=== PATIENT | male | born 1945 | race Caucasian/White ===

== ENCOUNTER 2016-11-26 20:06 | Inpatient (IN) | payer MEDICARE, OTHER ==
[~2016-11-26] VITALS: Ht 177.8 cm; Wt 85.3 kg
[2016-11-26] MEDS ORDERED: Heparin 25K Unit/500mL 0.45 NS 25,000 UNIT in IV Premix 1 EACH IV SCH (22:15)
[2016-11-26] MEDS ORDERED: Heparin 5,000 Unit/mL Inj IVPUSH PRN (22:15)
[2016-11-26] MEDS ORDERED: Polyethylene Glycol (PEG) 17 Gm Powder PO PRN (22:15)
[2016-11-26] MEDS ORDERED: Atropine 1 mg/10 mL (Code) Syringe IVPUSH PRN (22:15)
[2016-11-26] MEDS ORDERED: Alum-Mag Hydrox-Simeth 30 mL Suspension PO PRN (22:15)
[2016-11-26] MEDS ORDERED: Ondansetron 2 mg/mL 2 mL Inj IVPUSH PRN (22:15)
[2016-11-26] MEDS ORDERED: Senna-Docusate 8.6-50 mg Tablet PO PRN (22:15)
[2016-11-26 22:26] VITALS: BP 167/77; PULSE 63; RESP 18; O2SAT 99
[2016-11-26 22:45] LABS: APPEARANCE,URINE CLEAR (CLEAR,HAZY); COLOR,URINE YELLOW (YELLOW); OCCULT BLOOD,URINE NEGATIVE (NEGATIVE); UROBILINOGEN,URINE NORMAL (NORMAL)
[2016-11-26 22:51] LABS: BASOPHILS % (AUTO) 0.2 % (0-3); EOSINOPHILS % (AUTO) 1.1 % (0-5); Mean Corpuscular Hemoglobin 29.4 pg (27.0-35.0); Mean Corpuscular Volume 86.3 fL (81-100); NEUTROPHILS % (AUTO) 59.4 % (40-74); Platelet Count 320 bil/L (150-400)
--- NOTE | 2016-11-26 23:20 | PCM.HPMED ---
Subjective Date of Service Nov 26, 2016 Primary Provider: Admitting Physician: Alejandro Saez MD Primary Care Physician: Nopcp Attending Physician: Alejandro Saez MD Chief Complaint: Burning left chest pain History of Present Illness: Ramiro Yun is a 71-year-old male with past medical history significant for heartburn treated with OTC and significant family history of coronary artery disease who presented to [facility] after an episode of left sided burning chest pain. Chest pain came on all of a sudden when patient started walking. Once he stopped walking the pain alleviated and resolved within minutes. It was a burning sensation and radiated to his left shoulder. Not associated with shortness of breath, diaphoresis, nausea, lightheadedness, or dizziness. Patient typically can walk many miles and do physical labor without difficulty or chest pain. He states he had one prior episode of a similar sensation earlier this week that kept him from sleeping but went away within 10-15 minutes. On admission to [facility] he was found to have an elevated troponin of 0.035 that increased to 0.072. EKG showed possible ST depressions but was less than 2 mm. Labs were unremarkable aside from an elevated blood glucose of 305. Patient does not have a prior diagnosis of diabetes. Patient was given aspirin and nitroglycerin and started on heparin drip. On presentation to our facility a repeat EKG was obtained which showed normal sinus rhythm with no ST changes or T-wave inversions. Repeat labs including a troponin are pending. Patient is currently asymptomatic with stable vitals. Of note patient is a [place] resident visiting his daughter here in [place]. He does not have a PCP and has not had any recent screening labs. Review of Systems: Comprehensive review of systems was conducted with the patient and found to be negative except as noted above in HPI. Home Medications OTC - Pepcid and ibuprofen PMH Heartburn Chronic knee pain Surgical History Tonsillectomy Family History Father - CABG Brother - DC and valve replacement Mother - CVA Social History Hx Alcohol Use: Yes (1-2 beers per week) Hx Substance Use: No Hx Tobacco Use: No Smoking Status: Never Smoker Living Arrangement: with Family Exam Vital Signs Vital Sign - Last Date Time Temp Pulse Resp B/P Pulse Ox O2 Delivery O2 Flow Rate FiO2 11/26/16 22:26 63 18 167/77 99 Room Air Exam General: No acute distress, well-developed, well-nourished, appropriately interactive HEENT: Normocephalic, atraumatic. External ears without defect. Pupils equal, round, and reactive to light and accommodation. Anicteric sclerae, moist conjunctivae, and no lid lag. Oropharynx free of erythema and cobble stoning with moist mucosa. Neck: Supple with full range of motion. No jugular venous distension. No bruits. No lymphadenopathy or thyromegaly. Cardiovascular: Regular rate and rhythm with no murmurs, rubs, or gallops appreciated Pulmonary: Clear to auscultation bilaterally with no crackles, wheezes, or rhonchi. Normal respiratory effort with no use of accessory muscles. Abdomen: Bowel tones present. Soft, nontender, nondistended. No hepatosplenomegaly or masses appreciated. Extremities: No clubbing, cyanosis, edema, or lymphadenopathy appreciated. Skin: Normal temperature, turgor, and texture; no rash, ulcers, or subcutaneous nodules appreciated. Neurological: Cranial nerves grossly intact. Normal muscle strength, tone, and bulk. Reflexes, coordination, and sensory function within normal limits. No known gait impairment. Psychiatric: Normal mood and affect. Alert and oriented to person, place, and time. Lab and Diagnostics Labs CBC Test 11/26/16 22:47 White Blood Count 6.4th/mm3 (3.8-10.1) Red Blood Count 4.46mil/mm3 (4.40-5.80) Hemoglobin 13.1g/dL (13.8-17.2) Hematocrit 38.5% (41.0-50.0) Mean Corpuscular Volume 86.3fL (81-100) Mean Corpuscular Hemoglobin 29.4pg (27.0-35.0) Mean Corpuscular Hemoglobin Concent 34.0% (32.0-37.0) Red Cell Distribution Width 12.7% (12.3-15.4) Platelet Count 320bil/L (150-400) Neutrophils (%) (Auto) 59.4% (40-74) Lymphocytes (%) (Auto) 29.7% (14-46) Monocytes (%) (Auto) 9.0% (4-12) Eosinophils (%) (Auto) 1.1% (0-5) Basophils (%) (Auto) 0.2% (0-3) CMP Test 11/26/16 22:47 11/26/16 22:54 Sodium Level 138mEq/L Potassium Level 3.6mEq/L Chloride Level 101mEq/L Carbon Dioxide Level 21mmol/L Blood Urea Nitrogen 18mg/dL Creatinine 0.95mg/dL Estimat Glomerular Filtration Rate 84mL/min Glucose Level 213mg/dL Calcium Level 8.9mg/dL Phosphorus Level 2.5mg/dL Magnesium Level 1.8mg/dL Total Bilirubin 0.4mg/dL Aspartate Amino Transf (AST/SGOT) 11U/L Alanine Aminotransferase (ALT/SGPT) 16U/L Alkaline Phosphatase 66U/L Total Creatine Kinase 20U/L Creatine Kinase MB 1.4ng/mL Creatine Kinase MB % % Troponin T < 0.010ug/L Total Protein 6.8g/dL Albumin 3.9g/dL Thyroid Stimulating Hormone (TSH) 2.680uIU/mL Hold Hood Top Tube Received Result Diagram: 11/26/16 2247 X-Rays, CTs and MRIs Chest x-ray at [facility] showed no cardiopulmonary disease. 12-lead ECG EKG was normal sinus rhythm with a rate of 56. No ST changes or T-wave inversions. Assessment & Plan Ramiro Yun is a 71-year-old male with past medical history significant for heartburn treated with OTC and significant family history of coronary artery disease who presented to [facility] after an episode of left sided burning chest pain. NSTEMI, present on admission, active. - EKG was normal sinus rhythm with no ST changes or T-wave inversions. Initial EKG at [place] showed some ST depressions that were less than 2 mm. - Initial troponin I 0.035 which increased to 0.072 3 hours later. Troponin at [facility] on presentation was < 0.010. Trending troponins. - Lipid panel pending. - Supplemental oxygen as needed. - Aspirin 324 mg given at [facility]. Aspirin 81 mg to be continued daily. - Clopidogrel 300 mg loading dose followed by 75 mg daily. - Sublingual nitroglycerin and morphine as needed. - Metoprolol tartrate 12.5 mg twice a day. - Lisinopril 5 mg daily. - Atorvastatin 40 mg daily. - Heparin drip initiated. Elevated blood glucose, present on admission, active. - Blood glucose 305 at [facility]. Repeat blood glucose of 213 at our facility. - Hemoglobin A1c pending. - Low-dose correctional scale with NPH. Chronic stable conditions Heartburn - Patient has never had an EGD or workup. He takes Pepcid as needed at home. - Famotidine 10 mg twice a day. PRN Medications - Acetaminophen as needed for mild pain/fever/headache - Bowel regimen as needed - Antiemetic as needed Patient is admitted under inpatient status with expected length of stay greater than 2 midnights due to severity of presenting symptoms, risk of adverse event, and complexity of treatment plan. Pain Evaluation: Adequate Pain Control GI Prophylaxis: H2 ivette VTE Prophylaxis: Other (heparin drip) Resuscitation Status: CPR: Attempt Resuscitation Attending Statement The patient was seen and examined together with Dr. Mehta on 11/26 and I agree with the history, exam and plan as outlined in the note above. RYLEY MEHTA DO Nov 26, 2016 23:20 Alejandro Saez MD Nov 27, 2016 00:03
[2016-11-26 23:41] LABS: Creatine Kinase 20 U/L (21-232); Magnesium 1.8 mg/dL (1.6-2.6); Phosphorus 2.5 mg/dL (2.5-4.9); TROPONIN T < 0.010 ug/L (0.0-0.011)
[2016-11-27] VITALS (25 sets, daily range): BP systolic 102–153; BP diastolic 52–79; PULSE 49–74; RESP 16–19; O2SAT 96–100
[2016-11-27] MEDS: Sodium Chloride LOK Flush 10 mL Syringe IVFLUSH SCH ×3 (00:30→16:30)
[2016-11-27] MEDS: Insulin Human REGular 300 Unit/3 mL Inj SUBQ SCH ×4 (03:36→22:19)
[2016-11-27 04:27] LABS: BASOPHILS % (AUTO) 0.3 % (0-3); MONOCYTES % (AUTO) 6.8 % (4-12); Mean Corpuscular Hemoglobin 29.4 pg (27.0-35.0); Mean Corpuscular Volume 86.7 fL (81-100); NEUTROPHILS % (AUTO) 60.9 % (40-74); Platelet Count 284 bil/L (150-400)
[2016-11-27 05:22] LABS: TROPONIN T 0.01 ug/L (0.0-0.011)
[2016-11-27] MEDS ORDERED: 0.9% Sodium Chloride 1,000 ML IV ONE (10:40)
--- NOTE | 2016-11-27 10:50 | CONS ---
[address] [address] CONSULTATION REPORT PATIENT: ADDIE VEGA : 1945 MR#: [id number] ADMIT: 11/26/2016 JOB ID: [id number] DATE OF SERVICE: 11/27/2016 CARDIOLOGY CONSULTATION NOTE: CHIEF COMPLAINT: The patient came in with chest pain, and I am asked by the Hospitalist team to consult. HISTORY OF PRESENT ILLNESS: The patient is a 71-year-old man without any significant past medical history who reports being generally very active. He and his are out here visiting his daughter and on Thursday, they did some hiking on [place] without any problems. Later that evening he noticed some burning discomfort, which he thought might be heartburn. He tried to take some Pepcid, which actually helped to some degree, and he was able to sleep. On Thursday, he felt pretty well. Yesterday, he was out hiking in [place] and was going up a fairly mild incline and started getting chest discomfort. He did not have any shortness of breath, did not notice of palpitations, had no presyncope or syncope but because this was a new symptom and family history of coronary artery disease he went to [facility]. At [facility] he had elevated troponins and some mild EKG abnormalities. He was transferred here on a heparin drip. Since he has been here his troponins have normalized. He has no chest pain. No chest pressure. No orthopnea, PND, lower extremity edema, palpitations, presyncope, or syncope at this time. PAST MEDICAL HISTORY/PROBLEM LIST: 1. History of heartburn. 2. History of chronic knee pain and hip pain, and no planned surgeries. MEDICATIONS AT HOME: [id number] Pepcid and ibuprofen. ALLERGIES: No known drug allergies. SOCIAL HISTORY: Never smoker. Alcohol, 1-2 beers a week. FAMILY HISTORY: Positive for father with bypass surgery, brother with [employer] and valve replacement, mother with stroke. REVIEW OF SYSTEMS: Overall health: No fevers, chills, night sweats, or weight loss. GI: Denies any problems with ulcers, blood in his stool, bleeding hemorrhoids. Nephrology: No history of kidney stones or blood in his urine. Musculoskeletal: Has some chronic hip pain related to an injury to that hip. Pulmonary: No increased shortness of breath. No known lung disease. Derm: No rashes or skin breakdown. Heme: No easy bruising or bleeding. Neuro: No chronic headaches. No history of stroke. Endocrine: No heat or cold intolerance, although his glucoses are elevated. There is some concern he might have a new diagnosis of diabetes. Psych: No acute issues. Ophtho: No acute issues. ENT: No difficulty swallowing. No hearing changes. A 12-point review of systems negative. PHYSICAL EXAMINATION: Blood pressure is 127/68, afebrile, heart rate 63, sats are 97% on room air. General: In no acute distress. Speaking in full sentences without apparent shortness of breath. Head and neck exam: Normocephalic, atraumatic. Neck with no obvious JV distention. Heart exam: Regular rate and rhythm. I do not appreciate murmurs. No gallops or rubs appreciated. Lungs: Sound clear. Back: No CVA tenderness. The patient's abdomen is soft, nontender. Vascular: No carotid bruits. 2+ distal PT pulses. Derm: No rash or skin breakdown. Neuro: Alert and oriented x3. Gait is not tested. Psych: Appropriate mood and affect. Ophtho: Vision grossly intact. ENT: Mucous membrane moist. Slightly decreased hearing. LABORATORY AND DIAGNOSTIC STUDIES: EKG shows sinus rhythm with some subtle anterolateral EKG changes. Troponins here are all normal, although they were elevated at [facility]. White count 6.7, H and H of 12.4 and 36.6, platelets of 284,000. Chemistry today shows sodium 135, potassium 4, chloride and bicarb of 102 and 21, respectively, BUN and creatinine of 18 and 0.93, glucose is in the 200s. Troponins not elevated. Triglycerides 200, cholesterol 246, LDL 166 and HDL 40. I do not have a chest x-ray but that was done at [facility]. CURRENT MEDICATIONS: Include: 1. Insulin. 2. Famotidine. 3. Plavix 75 daily. 4. Aspirin 81 mg daily. It does appear that he was given a loading dose last night. 5. Heparin drip. 6. Atorvastatin. 7. Lisinopril 5 q.h.s. IMPRESSION: The patient came comes in with some progressive exertional symptoms. Initially, troponins were elevated. They are not elevated now. His EKG is not totally normal. PLAN: 1. Will get an echocardiogram. Assess LV function, look for focal wall motion abnormalities and assess valves. 2. Because of his symptoms being concerning for angina with the elevated troponins, which have now trended down, along with an abnormal EKG, I have recommended cardiac catheterization. I have discussed the risks and benefits with him, and he agrees to proceed. I spent a considerable amount of time discussing the potential findings including multivessel disease amenable only to bypass, vessel amenable to stenting and described the different stents, the different courses of Plavix and aspirin that will be required. He expressed understanding. one hour was spent reviewing the patient's records, discussing the findings with him and discussing his symptoms. I discussed the risks/benefits of cardiac cath. ROHAN
[2016-11-27] MEDS ORDERED: Heparin 1,000 Unit/mL 10 mL Inj ONE (14:01)
[2016-11-27] MEDS ORDERED: 0.9% Sodium Chloride 1,000 ML ONE (14:01)
[2016-11-27] MEDS ORDERED: Nitroglycerin 50,000 mcg/250 mL D5W Premix IV ONE (14:01)
[2016-11-27] MEDS ORDERED: Heparin 1,000 Units/500 mL NS Premix IV ONE (14:01)
[2016-11-27] MEDS ORDERED: Heparin 10,000 Unit/1,000 mL NS Premix IV ONE ×2 (14:01→16:04)
[2016-11-27] MEDS ORDERED: fentaNYL-PF 50 mCg/mL 2 mL Inj ONE ×2 (14:10→15:26)
--- NOTE | 2016-11-27 14:47 | PCM.PNMED ---
Subjective Date of Service Nov 27, 2016 Subjective Ramiro Yun is a 71-year-old male with past medical history significant for heartburn treated with OTC and significant family history of coronary artery disease who presented to [facility] after an episode of left sided burning chest pain. The patient was seen and examined by me today. Currently, he denies chest pain, palpitations, and shortness of breath. Denies nausea or vomiting. Is complaining of a 2/10 headache since being admitted to the hospital. AM labs showed glucose: 258, triglycerides: 200, cholesterol: 246, LDL: 166, HDL: 40. Troponins have been negative X3. Patient remains on heparin drip per NSTEMI protocol. There were no acute events overnight. Exam Vital Signs Vital Sign - Last Date Time Temp Pulse Resp B/P Pulse Ox O2 Delivery O2 Flow Rate FiO2 11/27/16 08:30 36.8 63 18 127/68 97 Room Air Intake and Output 11/26/16 11/26/16 11/27/16 Cumulative From/Thru 15:00 23:00 07:00 11/26/16 22:26 - 11/27/16 06:05 Intake Total 426 ml 426 ml Output Total 1400 ml 1400 ml Balance -974 ml -974 ml Intake Oral 290 ml 290 ml IV Total 136 ml 136 ml Output Urine Total 1400 ml 1400 ml # Bowel Movements 0 0 Exam General: Patient is lying comfortably on bed, AAOX3, not in acute distress, cooperative and pleasant. HEENT: head normocephalic and atraumatic, PERRLA, EOMI, no scleral icterus, noninjected conjunctiva, hard of hearing Neck: neck supple, non-tender, no lymphadenopathy, trachea midline, no JVD CV: regular rate and rhythm, s1 and s2 heard, no murmur, radial pulses 2+ and equal bilaterally, no rubs murmurs or gallops, no edema Lungs: Clear to auscultation bilaterally, no wheezes, rales or rhonchi, no increased work of breathing Abdomen: normoactive bowel sounds on 4Q, soft, non-distended, non-tender to palpation, no organomegally, Skin: warm and dry Musculoskeletal: 5/5 UE and LE strength bilaterally, full ROM bilaterally Neuro: Grossly neurologically intact, cranial nerves II through XII intact, no dyskinesia, dysmetria, or dysdiadochokinesia noted Psych: Normal mood and affect IVs and Medications Medications Reviewed: Medications were reviewed in detail Medications High-risk medications include heparin drip Lab and Diagnostics Laboratory Tests Test 11/26/16 22:22 11/26/16 22:26 11/26/16 22:47 11/26/16 22:54 Hold Urine Received (Received) Urine Color Yellow (YELLOW) Urine Appearance Clear (CLEAR,HAZY) Urine pH 6.0 (5.0-8.0) Urine Specific [employer] 1.015 (1.003-1.035) Urine Protein Negativemg/dL (NEG,TRACE) Urine Glucose (UA) 1000mg/dL (NEGATIVE) Urine Ketones Negativemg/dL (NEGATIVE) Urine Occult Blood Negative (NEGATIVE) Urine Nitrite Negative (NEGATIVE) Urine Bilirubin Negative (NEGATIVE) Urine Urobilinogen Normalmg/dL (NORMAL) Urine Leukocyte Esterase Negative (NEGATIVE) Urine RBC 0-2/hpf (0-2) Urine WBC 0-5/hpf (0-5) Urine Epithelial Cells Few/hpf (NONE-MOD) Urine Crystals None seen (NONE SEEN) Urine Bacteria Few/hpf (NONE-FEW) Urine Hyaline Casts None/lpf (NONE) Urine Granular Casts None seen (NONE SEEN) Urine Waxy Casts None seen (NONE SEEN) Urine Red Blood Cell Casts None seen (NONE SEEN) Urine White Blood Cell Casts None seen (NONE SEEN) Urine Mucus None seen (None Seen) Urine Trichomonas None seen (NONE SEEN) Urine Yeast None (NONE SEEN) Urinalysis Comment None Urine Culture Reflexed Not indicated White Blood Count 6.4th/mm3 (3.8-10.1) Red Blood Count 4.46mil/mm3 (4.40-5.80) Hemoglobin 13.1g/dL (13.8-17.2) Hematocrit 38.5% (41.0-50.0) Mean Corpuscular Volume 86.3fL (81-100) Mean Corpuscular Hemoglobin 29.4pg (27.0-35.0) Mean Corpuscular Hemoglobin Concent 34.0% (32.0-37.0) Red Cell Distribution Width 12.7% (12.3-15.4) Platelet Count 320bil/L (150-400) Neutrophils (%) (Auto) 59.4% (40-74) Lymphocytes (%) (Auto) 29.7% (14-46) Monocytes (%) (Auto) 9.0% (4-12) Eosinophils (%) (Auto) 1.1% (0-5) Basophils (%) (Auto) 0.2% (0-3) Sodium Level 138mEq/L (134-144) Potassium Level 3.6mEq/L (3.5-5.2) Chloride Level 101mEq/L (97-108) Carbon Dioxide Level 21mmol/L (18-29) Blood Urea Nitrogen 18mg/dL (8-27) Creatinine 0.95mg/dL (0.76-1.27) Estimat Glomerular Filtration Rate 84mL/min (>59) Glucose Level 213mg/dL (60-99) Calcium Level 8.9mg/dL (8.5-10.1) Phosphorus Level 2.5mg/dL (2.5-4.9) Magnesium Level 1.8mg/dL (1.6-2.6) Total Bilirubin 0.4mg/dL (0.0-1.2) Aspartate Amino Transf (AST/SGOT) 11U/L (0-50) Alanine Aminotransferase (ALT/SGPT) 16U/L (0-44) Alkaline Phosphatase 66U/L (25-160) Total Creatine Kinase 20U/L (21-232) Creatine Kinase MB 1.4ng/mL (0.0-10.4) Creatine Kinase MB % % (0.0-5.0) Troponin T < 0.010ug/L (0.0-0.011) Total Protein 6.8g/dL (6.4-8.4) Albumin 3.9g/dL (3.4-5.0) Thyroid Stimulating Hormone (TSH) 2.680uIU/mL (0.450-4.500) Hold Hood Top Tube Received (Received) Test 11/27/16 04:15 11/27/16 10:40 White Blood Count 6.7th/mm3 (3.8-10.1) Red Blood Count 4.22mil/mm3 (4.40-5.80) Hemoglobin 12.4g/dL (13.8-17.2) Hematocrit 36.6% (41.0-50.0) Mean Corpuscular Volume 86.7fL (81-100) Mean Corpuscular Hemoglobin 29.4pg (27.0-35.0) Mean Corpuscular Hemoglobin Concent 33.9% (32.0-37.0) Red Cell Distribution Width 12.9% (12.3-15.4) Platelet Count 284bil/L (150-400) Neutrophils (%) (Auto) 60.9% (40-74) Lymphocytes (%) (Auto) 29.5% (14-46) Monocytes (%) (Auto) 6.8% (4-12) Eosinophils (%) (Auto) 2.0% (0-5) Basophils (%) (Auto) 0.3% (0-3) Activated Partial Thromboplast Time 41.7sec (22.8-33.0) 56.2sec (22.8-33.0) Sodium Level 135mEq/L (134-144) Potassium Level 4.0mEq/L (3.5-5.2) Chloride Level 102mEq/L (97-108) Carbon Dioxide Level 21mmol/L (18-29) Blood Urea Nitrogen 18mg/dL (8-27) Creatinine 0.93mg/dL (0.76-1.27) Estimat Glomerular Filtration Rate 86mL/min (>59) Glucose Level 258mg/dL (60-99) Calcium Level 8.9mg/dL (8.5-10.1) Troponin T 0.010ug/L (0.0-0.011) Triglycerides Level 200mg/dL (0-149) Cholesterol Level 246mg/dL (100-199) LDL Cholesterol, Calculated 166.000mg/dL (0-99) VLDL Cholesterol 40.000mg/dL HDL Cholesterol 40mg/dL (>39) Cholesterol/HDL Ratio 6.15 (0.0-4.4) Result Diagram: 11/27/1641411/27/16414 X-Rays, CTs and MRIs Chest x-ray at [facility] showed no cardiopulmonary disease. 12-lead ECG EKG was normal sinus rhythm with a rate of 56. subtle anterolateral EKG changes Assessment & Plan Ramiro Yun is a 71-year-old male with past medical history significant for heartburn treated with OTC and significant family history of coronary artery disease who presented to [facility] after an episode of left sided burning chest pain. NSTEMI, present on admission, active. - EKG was normal sinus rhythm with no ST changes or T-wave inversions. Initial EKG at [place] showed some ST depressions that were less than 2 mm. - Initial troponin I 0.035 which increased to 0.072 3 hours later. Troponin at [facility] on presentation was < 0.010. Troponins negative X2 . - Lipid panel shows Triglycerides 200, cholesterol 246, LDL 166 and HDL 40. - Supplemental oxygen as needed. - Aspirin [address] [facility]. Aspirin 81 mg to be continued daily. - Clopidogrel 300 mg loading dose followed by 75 mg daily. - Sublingual nitroglycerin and morphine as needed. - Metoprolol tartrate 12.5 mg twice a day. - Lisinopril 5 mg daily. - Atorvastatin 40 mg daily. - Heparin drip initiated. -Cardiology, Dr. Croft was consulted. We appreciate her recommendations. -ECHO ordered -Cardiology recommends cardiac catheterization Because of symptoms and abnormal EKG Elevated blood glucose, present on admission, active. - Blood glucose [address] [facility]. Repeat blood glucose of 213 at our facility on admit. - Hemoglobin A1c pending. - Low-dose correctional scale with NPH. -Patient will need close follow-up with PCP for tighter blood glucose control Hyperlipidemia, present on admission, active - Lipid panel shows Triglycerides 200, cholesterol 246, LDL 166 and HDL 40. -Patient started on atorvastatin 40 mg daily Chronic stable conditions GERD - Patient has never had an EGD or workup. He takes Pepcid as needed at home. - Famotidine 10 mg twice a day. PRN Medications - Acetaminophen as needed for mild pain/fever/headache - Bowel regimen as needed - Antiemetic as needed Disposition: Patient will undergo cardiac catheterization today. It was discussed with the patient that he needs to establish a primary care physician along with the cyber threat analyst back in [place] where he lives. 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 We will discuss with the patient discharge planning after the cardiac cath. Pain Evaluation: Adequate Pain Control GI Prophylaxis: H2 ivette VTE Prophylaxis: Other (heparin drip) Resuscitation Status: CPR: Attempt Resuscitation Attending Statement The patient was seen and examined together with Dr. Harvey on 11/27/16 and I have added additional information to the note above. Chiquis Harvey DO Nov 27, 2016 11:57 Blanca Castillo DO Nov 27, 2016 15:52
[2016-11-27] MEDS ORDERED: Abciximab Bolus 2 mg/mL 5 mL Inj ONE (16:28)
--- NOTE | 2016-11-27 19:01 | DRSVH ---
[facility] [address] [place] [address] Echocardiogram Report Name: ADDIE VEGA CStudyumiko Evangelista e: 11/27/2016 Height: 70 in Hospital Exam Location: [facility] Weight: 188 lb Gender: Male BSA: 2.0 m2 : 1945 Age: 71 yrs BP: 134/75 mmHg Reason For Study: Chest pain [facility]ing Phys[facility] Referring Physician: RYLEY MEHTA Interpretation Summary 1. Normal left ventricular size, wall thickness and systolic function. 2. Normal right ventricular size and systolic function. 3. No evidence for significant valvular pathology There is no old study for comparison Procedure: A two-dimensional transthoracic echocardiogram with color flow and Doppler was performed. The study quality was technically adequate. There is no prior echocardiogram noted for this patient. The patient was in sinus bradycardia with heart rates between 50-58 bpm during the exam. Left Ventricle: The left ventricle is normal in size. There is normal left ventricular wall thickness. Left ventricular systolic function is normal. No obvious wall motion abnormalities. Right Ventricle: The right ventricle is normal size. The right ventricular systolic function is normal. Atria: The left atrium is mildly dilated. Right atrial size is normal. The interatrial septum is intact with no evidence for an atrial septal defect. Mitral Valve: The mitral valve leaflets appear borderline thickened, but open well. There is trace mitral regurgitation. Aortic Valve: The aortic valve is trileaflet. The aortic valve opens well. Mild sclerotic/calcific changes. There is trace aortic regurgitation. Tricuspid Valve: The tricuspid valve leaflets are thin and pliable. There is mild tricuspid regurgitation. The right ventricular systolic pressure is estimated at 34 mmHg assuming a right atrial pressure of 8 mm Hg. Pulmonic Valve: The pulmonic valve leaflets are thin and pliable; valve motion is normal. There is a trace or physiologic amount of pulmonic regurgitation. Great Vessels: The ascending aorta is mildly enlarged. The IVC is dilated (diameter is greater than 2.1 cm) yet it collapses greater than 50% with a sniff. This suggests a right atrial pressure of 8 mm Hg. Pericardium/ Pleura There is no pericardial effusion. There is no pleural effusion. MMode/2D Measurements & Calculations LVIDd: 5.3 cm LVIDs: 4.3 cm LA A2 area: 21.5 cm FS: 18.5 % LA A4 area: 21.7 cm EPSS: 0.79 cm LA length (vol): 5.3 cm IVSd: 0.88 cm LA vol: 74.5 ml LVPWd: 0.91 cm LA vol index: 36.7 ml/m IVC diam: 2.3 cm RA long axis: 5.3 cm LVOT diam: 2.5 cm RA area: 16.2 cm Ao root diam: 3.8 cm RA vol: 41.9 ml asc Aorta Diam: 3.6 cm RA : 20.6 ml/m2 Ao Arch Diam (Prox Trans): 2.3 cm LV blel. diameter/BSA (cm/m^2): 2.6 LV sys. diameter/BSA (cm/m^2): 2.1 RVD1 (basal): 3.7 cm Doppler Measurements & Calculations Ao V2 max: 140.7 cm/sec MV E max ky: 64.1 cm/sec Ao max P.9 mmHg MV A max ky: 67.0 cm/sec Ao mean P.9 mmHg LVOT Max Ky: 70.6 cm/sec MARLIN(I,D): 2.5 cm sev ratio: 0.52 MV E/A: 0.96 TR max ky: 253.1 cm/sec TR max P.6 mmHg PA V2 max: 102.8 cm/sec PA mean P.3 mmHg MV dec time: 0.25 sec Ao V2 mean: 106.0 cm/sec Ao V2 VTI: 33.0 cm MARLIN(V,D): 2.4 cm2 LV V1 max P.0 mmHg PA V2 mean: 71.7 cm/sec LV V1 VTI: 17.3 cm PA pr(Accel): 43.2 mmHg MARLIN indexed to BSA (cm^2/m^2): 1.2 Reading Physician:07:00 PM
--- NOTE | 2016-11-27 22:25 | CS94 ---
[address] [address] DIAGNOSTIC CARDIAC CATHETERIZATION PATIENT: ADDIE VEGA : 1945 MR#: [id number] ADMIT: 11/26/2016 JOB ID: [id number] SERVICE DATE: 11/27/2016 PROCEDURES PERFORMED: 1. Coronary angiography. 2. Intravascular ultrasound of the proximal left anterior descending. 3. Balloon angioplasty of the proximal left anterior descending artery. 4. Stent placement to the proximal left anterior descending artery. INDICATIONS: This is a gentleman who had worsening exertional angina with mild elevation of troponins. He has an abnormal EKG. Presents for further assessment by cardiac catheterization. DESCRIPTION OF PROCEDURE: Informed consent was obtained. Patient brought to catheterization lab. Bilateral groins are prepped and draped in usual sterile fashion. The area over the right femoral artery was anesthetized with lidocaine. Using modified Seldinger technique and a micropuncture kit, access was obtained and a 5-Salvadorean sheath was advanced. Next, a 5-Salvadorean JL4 catheter was advanced over wire into the left coronary artery and angiography was obtained. Catheter was removed. A 5-Salvadorean JR4 catheter advanced over a wire into the right coronary artery and angiography obtained. This catheter was removed. Given findings of a high-grade proximal left anterior descending artery stenosis, an intervention was planned. The current 5-Salvadorean sheath was exchanged out for a 6-Salvadorean sheath. An angiographic view confirmed good placement. Heparin was given for anticoagulation. A 6-Salvadorean CLS 3.5 guide was advanced over a wire into the left coronary artery. A Prowater wire was advanced across the area of stenosis in the left anterior descending artery. As noted, heparin was give for anticoagulation. A 2.5 x 12 mm balloon was advanced to the area of stenosis. This facilitated passage IVUS. IVUS was advanced distally. The vessel distal appeared in the range of 3.2 to 3.3 mm. In the area of stenosis, there was mostly fibrous plaque with some scattered calcification but no concentric calcification. Proximal to the area of stenosis, there was actually quite a bit of fibrous plaque. This extends almost up to the left main. Given this, a 3.25 mm balloon was advanced to the area of stenosis. This was inflated. This dilated well. Therefore plans were made for stenting. There were some challenges placing the stent, given large left main and difficulty with guide position; however ultimately a 3.25 x 18 mm Xience stent was advanced to the area of stenosis. This was inflated initially to nominal pressures. It was also then post dilated with a 3.5 Noncompliant balloon. IVUS was again advanced into the stented area. This revealed that the stent was well apposed to plaque; however, in the mid section, it needed improved expansion. A 3.5 Noncompliant balloon was advanced in the area of stenting and this was inflated to higher atmospheres. Followup angiographic views after post dilation reveal an excellent angiographic result with brisk flow into the artery. No evidence for residual stenosis. No evidence for dissection. No evidence for shift of the plaque into the left main artery or into the ostium of the circumflex artery. The case was ended after final views were obtained. Angiographic views of the right femoral access site was reviewed prior to achieving hemostasis with a StarClose device. There were no complications. FINDINGS: CORONARIES: The left main: This is a left-dominant system. There is a large short left main. LAD: There is approximately 98% stenosis in the proximal left anterior descending artery. As noted, this area was crossed with a wire. This was treated with balloon dilation. This was assessed with IVUS. After pre dilation and assessment of IVUS, given findings of rather diffuse plaque throughout the vessel, a 3.25 x 18 mm Xience stent was inflated in the area to nominal pressures and then post dilated to high atmospheres with a 3.5 Noncompliant balloon. After stenting, this gave an excellent angiographic result. Circumflex is a dominant vessel. It gives rise to several obtuse marginal branches which have no evidence of obstructive disease and there was only evidence for minor plaque. The left PDA has no evidence of obstructive disease. Right coronary: This is a nondominant vessel. HEMODYNAMICS: Aortic pressure is in the range of 109-110, systolic heart rates in the 60s-70s. Medications given during the case include anesthesia as per equipment operator/laborer records. Heparin given for anticoagulation. This gave therapeutic ACT. ReoPro bolus was given at the end of the case after hemostasis was achieved and the blood pressure was stable. IMPRESSION: 1. Evidence for a high-grade (98%) stenosis of the proximal left anterior descending artery. This was successfully assessed with intravascular ultrasound followed by a balloon dilation and ultimately stenting with a drug-eluting stent. 2. No other obstructive disease appreciated MTDD
[2016-11-28] MEDS: Sodium Chloride LOK Flush 10 mL Syringe IVFLUSH SCH ×2 (00:30→09:28)
[2016-11-28] MEDS: Insulin Human REGular 300 Unit/3 mL Inj SUBQ SCH ×2 (02:15→09:30)
[2016-11-28 02:42] LABS: BASOPHILS % (AUTO) 0.3 % (0-3); EOSINOPHILS % (AUTO) 2.2 % (0-5); MONOCYTES % (AUTO) 7.9 % (4-12); Mean Corpuscular Hemoglobin 29.1 pg (27.0-35.0); Mean Corpuscular Volume 87.7 fL (81-100); NEUTROPHILS % (AUTO) 57.6 % (40-74); Platelet Count 299 bil/L (150-400)
[2016-11-28 03:23] LABS: Magnesium 1.9 mg/dL (1.6-2.6); Phosphorus 3.3 mg/dL (2.5-4.9)
[2016-11-28 04:06] VITALS: BP 113/53; PULSE 58; RESP 18; O2SAT 95
[2016-11-28 04:44] VITALS: PULSE 52
[2016-11-28 07:29] VITALS: PULSE 57
[2016-11-28 09:25] VITALS: BP 139/79; PULSE 78; RESP 20; O2SAT 98
--- NOTE | 2016-11-28 10:00 | PROG NOTE ---
[address] [address] PROGRESS NOTE PATIENT: ADDIE VEGA : 1945 MR#: [id number] ADMIT: 11/26/2016 JOB ID: [id number] DATE: 11/28/2016 CARDIOLOGY PROGRESS NOTE: CHIEF COMPLAINT: The patient came in with subtle decelerating anginal symptoms, mildly elevated troponins. He is now status post a visit to the chemical processing laborer where he had a drug-eluting stent placed to the proximal left anterior descending artery. SUBJECTIVE: He is doing well. He has no chest pain. No chest pressure. Telemetry shows no arrhythmias. CURRENT MEDICATIONS: Include: 1. Insulin. 2. Crestor. 3. Pepcid. 4. Lisinopril 5 mg. 5. Clopidogrel 75. 6. Aspirin 81. 7. Heparin should be off at this juncture. 8. Metoprolol 12.5 b.i.d. PHYSICAL EXAMINATION: Blood pressure 139/79. He is afebrile. Heart rate 78, sats are 98% on room air. General: In no acute distress. Speaking in full sentences without apparent shortness of breath. Head and neck examination: Normocephalic, atraumatic. Neck: No obvious JV distention. Heart examination: Regular rate and rhythm. Lungs: Clear. Back: No CVA TTP. Abdomen is soft. Groin site with some bruising but nontender. Good distal pulses. No edema. LABORATORIES: Show a white count 5.9, H and H 12.3 and 37, platelets of 299,000. Chemistry shows sodium 139, potassium 4.2, chloride and bicarbonate 105 and 21 respectively. BUN and creatinine 20 and 0.99. Glucose is elevated but improving. Hemoglobin A1c 11.4. Cholesterol as noted in previous note. IMPRESSION: The patient came in with progressive anginal symptoms. He had a high-grade proximal LAD stenosis. This is going up to the left main in a left dominant system. This is successfully treated with a drug-eluting stent with a very good result. He has no ventricular arrhythmias or other concerning findings on telemetry. He is doing well. He has no chest pain, no shortness of breath. PLAN: 1. I have explained to him the extreme importance of taking both Plavix and aspirin every day without fail. He will be taking Plavix for at least one year, perhaps longer. 2. Continue with Crestor and metoprolol. 3. Regarding his diabetes, I will leave it to the medicine team to decide if they want to give them an agent prior to discharge or if they want him to followup with the primary care provider in [place]. I spent over 30 minutes discussing the ramifications of this patient's diagnosis today. I explained the ultimate importance of taking aspirin and Plavix on a regular basis along with his other cardiac medications. ROHAN
[2016-11-28] MEDS ORDERED: NITR0.4T SL (10:55)
[2016-11-28] MEDS ORDERED: LISI-571 PO (10:55)
[2016-11-28] MEDS ORDERED: CLOP75TA28 PO (10:55)
[2016-11-28] MEDS ORDERED: METO25TA6 PO (10:55)
[2016-11-28] MEDS ORDERED: CREST10T PO (10:55)
[2016-11-28] MEDS ORDERED: ASPI81TA3 PO (10:55)
[2016-11-28] MEDS ORDERED: METF500T4 PO (12:54)
--- NOTE | 2016-11-28 13:03 | PCM.DIMED ---
Chiquis Harvey DO 11/28/16 1035: Discharge Instructions Date of Service Nov 28, 2016 Dates of Hospitalization Nov 26, 2016 at 22:02 Discharge Diagnosis Discharge Diagnosis Non-ST Segment Elevation Myocardial Infarction status post stent placement Type II Diabetes Mellitus Hyperlipidemia Gastroesophageal Reflux Disease Diet Discharge Diet: Heart Healthy, Diabetic Activity Discharge Activity: No restrictions, Other (Do not lift anything more than 10 lbs for at least 4 days ) Call your provider Call your provider for: Fever or Chills, Shortness of breath, Bleeding, Chest pain, Vomitting, Excessive diarrhea, Weakness (unilateral) Patient Instructions Patient Instructions You came into the hospital with chest pain that started while you were walking up a small incline. At [facility], certain lab work showed that you may have been possibly having a heart attack, so you were sent to [facility]. Roller Leveler Operator, Dr. Croft did a cardiac catheterization which showed that one of your heart vessels was 98% occluded. As a result, she treated this with a stent, with great results. We monitored you overnight and all of your labs and vital signs remained stable. In addition, you deny chest pain and shortness of breath. We have explained to you the importance of taking both Plavix and aspirin every day without fail. You will be taking Plavix for at least one year, perhaps longer. Also, you will continue with metoprolol and Lisinopril. Because your cholesterol was high, you have also been started on a cholesterol medication, Crestor. You will need to follow-up closely with a foot orthopedist once you arrive in [place]. Lastly, we found that your Hemoglobin A1c (which is the 3 month average of your blood sugar) was high at 11.4. This gives you a diagnosis of diabetes. We will start you on metformin 500 mg twice daily. This is a medication that will help better control your blood sugars. You will need to follow-up with your primary care doctor who will help manage your diabetes. You have been given a glucometer so that you can measure your blood sugars at least twice a day. Keep a record of your blood glucose levels and show this to your doctor. In addition , you received diabetic education while in the hospital and we talked about the importance of diet, which includes limited carbohydrates and sugars as well as exercise. Common side effects of metformin include : heartburn , stomach pain, nausea or vomiting, bloating, gas, diarrhea, constipation, weight loss, headache and unpleasant metallic taste in mouth. More concerning side effects include extreme tiredness , weakness, trouble breathing, dizziness, lightheadedness, a fast or slow heart rate, muscle pain, and abdominal pain. Please stop taking the medication if you experience any of these side effects. Follow-up plan Follow-up with foot orthopedist and primary care provider in [place] Blanca Castillo DO 11/28/16 1510: Discharge Instructions Attending's Statement The patient was seen and examined together with Dr. Harvey on 11/28/16 and I agree with the history, exam and plan as outlined in the note above. Chiquis Harvey DO Nov 28, 2016 10:35 Blanca Castillo DO Nov 28, 2016 15:10
[2016-11-28] MEDS ORDERED: LANC1COM MC (13:37)
--- NOTE | 2016-11-28 14:47 | PCM.DC.MED ---
Discharge Summary Date of Service Nov 28, 2016 Dates of Hospitalization Date of Hospital Admission Nov 26, 2016 at 22:02 Date of Discharge: Nov 28, 2016 Providers: Admitting Physician: Alejandro Saez MD Primary Care Physician: Negro Attending Physician: Blanca Castillo DO Diagnosis at Time of Discharge Diagnosis at Time of Discharge Non-ST Segment Elevation Myocardial Infarction status post stent placement Type II Diabetes Mellitus Hyperlipidemia Gastroesophageal Reflux Disease Consultations Cardiology, Dr. Croft was consulted Procedures XRay, CTs & MRIs Chest x-ray at [facility] showed no cardiopulmonary disease. ECG 12 Lead EKG was normal sinus rhythm with a rate of 56. subtle anterolateral EKG changes Cardiac Echo Impression Echocardiogram Report Name: ADDIE VEGA CStudy Evangelista e: 11/27/2016 Height: 70 in Hospital Exam Location: [facility] Weight: 188 lb Gender: Male BSA: 2.0 m2 : 1945 Age: 71 yrs BP: 134/75 mmHg Reason For Study: Chest pain Ordering Physician: [facility] Staff Referring Physician: RYLEY MEHTA Interpretation Summary 1. Normal left ventricular size, wall thickness and systolic function. 2. Normal right ventricular size and systolic function. 3. No evidence for significant valvular pathology There is no old study for comparison Procedure: A two-dimensional transthoracic echocardiogram with color flow and Doppler was performed. The study quality was technically adequate. There is no prior echocardiogram noted for this patient. The patient was in sinus bradycardia with heart rates between 50-58 bpm during the exam. Left Ventricle: The left ventricle is normal in size. There is normal left ventricular wall thickness. Left ventricular systolic function is normal. No obvious wall motion abnormalities. Right Ventricle: The right ventricle is normal size. The right ventricular systolic function is normal. Atria: The left atrium is mildly dilated. Right atrial size is normal. The interatrial septum is intact with no evidence for an atrial septal defect. Mitral Valve: The mitral valve leaflets appear borderline thickened, but open well. There is trace mitral regurgitation. Aortic Valve: The aortic valve is trileaflet. The aortic valve opens well. Mild sclerotic/calcific changes. There is trace aortic regurgitation. Tricuspid Valve: The tricuspid valve leaflets are thin and pliable. There is mild tricuspid regurgitation. The right ventricular systolic pressure is estimated at 34 mmHg assuming a right atrial pressure of 8 mm Hg. Pulmonic Valve: The pulmonic valve leaflets are thin and pliable; valve motion is normal. There is a trace or physiologic amount of pulmonic regurgitation. Great Vessels: The ascending aorta is mildly enlarged. The IVC is dilated (diameter is greater than 2.1 cm) yet it collapses greater than 50% with a sniff. This suggests a right atrial pressure of 8 mm Hg. Pericardium/ Pleura There is no pericardial effusion. There is no pleural effusion. Other Diagnostics Cardiac Catheterization on 11/27/16 FINDINGS: CORONARIES: The left main: First of all this is a left-dominant system. There is a large short left main. There is approximately 98% stenosis in the proximal left anterior descending artery. As noted, this area was crossed with a wire. This was treated with balloon dilation. This was also pre-dilated with balloon and assessed with IVUS. After pre dilation and assessment of IVUS, given findings of rather diffuse plaque throughout the vessel, a 3.25 x 18 mm Xience stent was inflated in the area to nominal pressures and then post dilated to high atmospheres with a 3.5 Noncompliant balloon. After stenting, this gave an excellent angiographic result. Circumflex is a dominant vessel. It gives rise to several obtuse marginal branches which have no evidence of obstructive disease and there was only evidence for minor plaque. The left PDA has no evidence of obstructive disease. Right coronary: This is a nondominant vessel. HEMODYNAMICS: Aortic pressure is in the range of 109-110, systolic heart rates in the 60s-70s. Medications given during the case include anesthesia as per lab aid records. Heparin given for anticoagulation. This gave therapeutic ACT. ReoPro bolus was given at the end of the case after hemostasis was achieved and the blood pressure was stable. 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 This was successfully assessed with intravascular ultrasound followed by a balloon dilation and ultimately stenting with a drug-eluting stent. Brief History Addie Yun is a 71-year-old male with past medical history significant for heartburn treated with OTC medications and significant family history of coronary artery disease who presented to [facility] after an episode of left sided burning chest pain. Chest pain came on all of a sudden with burning sensation in the chest with radiation to the left shoulder while walking. Once he stopped walking the pain alleviated and resolved within minutes. On admission to [facility] he was found to have an elevated troponin of 0.035 that increased to 0.072. EKG showed possible ST depressions but was less than 2 mm. Labs were unremarkable aside from an elevated blood glucose of 305. Patient does not have a prior diagnosis of diabetes. Patient was given aspirin and nitroglycerin and started on heparin drip. On presentation to [facility], a repeat EKG was obtained which showed normal sinus rhythm with subtle anterolateral EKG changes. He was initially started on a heparin drip for NSTEMI protocol. Troponin remained negative X3. An ECHO was obtained, which was essentially unremarkable. Big Data Hadoop Developer, Dr. Croft took patient to the lab aid on 11/27/16 and found evidence of a high-grade (98%) stenosis of the proximal left anterior descending artery. This was successfully assessed with intravascular ultrasound followed by a balloon dilation and ultimately stenting with a drug-eluting stent. Patient was started on ASA, Plavix. He remained stable overnight, and was medically cleared by cardiology. Other pertinent lab findings include a Hgb A1C of 11.4. Patient was given diabetic education and will be started on metformin as outpatient, with close follow-up with PCP and cardiology. Hospital Course Addie Yun is a 71-year-old male with past medical history significant for heartburn treated with OTC and significant family history of coronary artery disease who presented to [facility] after an episode of left sided burning chest pain. NSTEMI s/p stent placement on the LAD - EKG was normal sinus rhythm with no ST changes or T-wave inversions. Initial EKG at [place] showed some ST depressions that were less than 2 mm. - Initial troponin I 0.035 which increased to 0.072 3 hours later. Troponin at [facility] on presentation was < 0.010. Troponins negative X2 . - Lipid panel shows Triglycerides 200, cholesterol 246, LDL 166 and HDL 40. - Supplemental oxygen was provided as needed - Aspirin [address] [facility]. Aspirin 81 mg to be continued daily. - Clopidogrel 300 mg loading dose followed by 75 mg daily. - Sublingual nitroglycerin and morphine as needed. - Metoprolol tartrate 12.5 mg twice a day. - Lisinopril 5 mg daily. - Atorvastatin 40 mg daily. - Heparin drip initiated. Stopped prior to cardiac cath -Cardiology, Dr. Croft was consulted. We appreciate her recommendations. -ECHO ordered and essentially unremarkable, see results above -Cardiology recommended cardiac catheterization Because of symptoms and abnormal EKG -Cardiac Catheterization on on 11/27/16 and found evidence of a high-grade (98%) stenosis of the proximal left anterior descending artery s/p drug-eluding stent placement Elevated blood glucose, with new diagnosis of diabetes mellitus type 2 - Blood glucose [address] [facility]. Repeat blood glucose of 213 at our facility on admit. - Hemoglobin A1c 11.4 - Low-dose correctional scale with NPH was initiated while inpatient -Patient was sent home with metformin 500 mg po bid and advised of side effects -Patient received diabetic education and glucometer -Patient will need close follow-up with PCP for tighter blood glucose control Hyperlipidemia, present on admission, active - Lipid panel shows Triglycerides 200, cholesterol 246, LDL 166 and HDL 40. -Patient started on atorvastatin 40 mg daily. Continue upon discharge Chronic stable conditions GERD - Patient has never had an EGD or workup. He takes Pepcid as needed at home. - Continued Famotidine 10 mg twice a day. Exam Vital Signs (Last) Date Time Temp Pulse Resp B/P Pulse Ox O2 Delivery O2 Flow Rate FiO2 11/28/16 09:28 Supplement Oxygen 11/28/16 09:25 36.7 78 20 139/79 98 Exam General: Patient is lying comfortably on bed, AAOX3, not in acute distress, cooperative and pleasant. HEENT: head normocephalic and atraumatic, PERRLA, EOMI, no scleral icterus, noninjected conjunctiva, hard of hearing Neck: neck supple, non-tender, no lymphadenopathy, trachea midline, no JVD CV: regular rate and rhythm, s1 and s2 heard, no murmur, radial pulses 2+ and equal bilaterally, no rubs murmurs or gallops, no edema Lungs: Clear to auscultation bilaterally, no wheezes, rales or rhonchi, no increased work of breathing Abdomen: normoactive bowel sounds on 4Q, soft, non-distended, non-tender to palpation, no organomegally, Skin: warm and dry, right groin cath insertion site, bandaged, no evidence of active bleed, no hematoma Musculoskeletal: 5/5 UE and LE strength bilaterally, full ROM bilaterally Neuro: Grossly neurologically intact, cranial nerves II through XII intact, no dyskinesia, dysmetria, or dysdiadochokinesia noted Psych: Normal mood and affect Test 11/26/16 22:22 11/26/16 22:26 11/26/16 22:47 11/26/16 22:54 Hold Urine Received (Received) Urine Color Yellow (YELLOW) Urine Appearance Clear (CLEAR,HAZY) Urine pH 6.0 (5.0-8.0) Urine Specific Fisher 1.015 (1.003-1.035) Urine Protein Negativemg/dL (NEG,TRACE) Urine Glucose (UA) 1000mg/dL (NEGATIVE) Urine Ketones Negativemg/dL (NEGATIVE) Urine Occult Blood Negative (NEGATIVE) Urine Nitrite Negative (NEGATIVE) Urine Bilirubin Negative (NEGATIVE) Urine Urobilinogen Normalmg/dL (NORMAL) Urine Leukocyte Esterase Negative (NEGATIVE) Urine RBC 0-2/hpf (0-2) Urine WBC 0-5/hpf (0-5) Urine Epithelial Cells Few/hpf (NONE-MOD) Urine Crystals None seen (NONE SEEN) Urine Bacteria Few/hpf (NONE-FEW) Urine Hyaline Casts None/lpf (NONE) Urine Granular Casts None seen (NONE SEEN) Urine Waxy Casts None seen (NONE SEEN) Urine Red Blood Cell Casts None seen (NONE SEEN) Urine White Blood Cell Casts None seen (NONE SEEN) Urine Mucus None seen (None Seen) Urine Trichomonas None seen (NONE SEEN) Urine Yeast None (NONE SEEN) Urinalysis Comment None Urine Culture Reflexed Not indicated Hemoglobin A1c 11.4% (4.8-5.6) Total Creatine Kinase 20U/L (21-232) Creatine Kinase MB 1.4ng/mL (0.0-10.4) Creatine Kinase MB % % (0.0-5.0) Thyroid Stimulating Hormone (TSH) 2.680uIU/mL (0.450-4.500) Hold Hood Top Tube Received (Received) Test 11/27/16 04:15 11/27/16 22:28 11/28/16 02:20 Troponin T 0.010ug/L (0.0-0.011) Triglycerides Level 200mg/dL (0-149) Cholesterol Level 246mg/dL (100-199) LDL Cholesterol, Calculated 166.000mg/dL (0-99) VLDL Cholesterol 40.000mg/dL HDL Cholesterol 40mg/dL (>39) Cholesterol/HDL Ratio 6.15 (0.0-4.4) Activated Partial Thromboplast Time 31.5sec (22.8-33.0) White Blood Count 5.9th/mm3 (3.8-10.1) Red Blood Count 4.22mil/mm3 (4.40-5.80) Hemoglobin 12.3g/dL (13.8-17.2) Hematocrit 37.0% (41.0-50.0) Mean Corpuscular Volume 87.7fL (81-100) Mean Corpuscular Hemoglobin 29.1pg (27.0-35.0) Mean Corpuscular Hemoglobin Concent 33.2% (32.0-37.0) Red Cell Distribution Width 13.1% (12.3-15.4) Platelet Count 299bil/L (150-400) Neutrophils (%) (Auto) 57.6% (40-74) Lymphocytes (%) (Auto) 31.3% (14-46) Monocytes (%) (Auto) 7.9% (4-12) Eosinophils (%) (Auto) 2.2% (0-5) Basophils (%) (Auto) 0.3% (0-3) Sodium Level 139mEq/L (134-144) Potassium Level 4.3mEq/L (3.5-5.2) Chloride Level 105mEq/L (97-108) Carbon Dioxide Level 21mmol/L (18-29) Blood Urea Nitrogen 20mg/dL (8-27) Creatinine 0.99mg/dL (0.76-1.27) Estimat Glomerular Filtration Rate 80mL/min (>59) Glucose Level 172mg/dL (60-99) Calcium Level 8.7mg/dL (8.5-10.1) Phosphorus Level 3.3mg/dL (2.5-4.9) Magnesium Level 1.9mg/dL (1.6-2.6) Total Bilirubin 0.2mg/dL (0.0-1.2) Aspartate Amino Transf (AST/SGOT) 14U/L (0-50) Alanine Aminotransferase (ALT/SGPT) 13U/L (0-44) Alkaline Phosphatase 59U/L (25-160) Total Protein 5.8g/dL (6.4-8.4) Albumin 3.5g/dL (3.4-5.0) Discharge Medications Discharge Medications Aspirin Chew (Aspirin Chew) 81 Mg Chew 81 MG PO DAILY Prescribed by: Michele COELLO Clopidogrel (Clopidogrel) 75 Mg Tablet 75 MG PO DAILY Prescribed by: Michele COELLO Lisinopril (Lisinopril) 5 Mg Tablet 5 MG PO HS Prescribed by: Michele COELLO Metformin (Metformin) 500 Mg Tablet 500 MG PO BID Prescribed by: Michele COELLO Metoprolol Tartrate (Metoprolol Tartrate) 25 Mg Tablet 12.5 MG PO Q12 Prescribed by: Michele COELLO Rosuvastatin Calcium (Crestor) 10 Mg Tablet 10 MG PO HS Prescribed by: Michele COELLO As needed Nitroglycerin SL (Nitrostat) 0.4 Mg Tab.subl 0.4 MG SL Q5MIN PRN PRN For Chest Pain Prescribed by: Michele COELLO Durable Medical Equipment Lancets/Blood Glucose Strips (Fora [id number] Lanct-Str) 30 Gauge Combo..pkg 1 EACH MC (DME) Prescribed by: Michele COELLO Followup Plan Disposition: Patient discharged to home in stable condition. Patient will follow-up with a aircraft engine dismantler and PCP in [place]. Follow-up plan Follow-up with aircraft engine dismantler and primary care provider in [place] Discharge Diet: Heart Healthy, Diabetic Discharge Activity: No restrictions, Other (Do not lift anything more than 10 lbs for at least 4 days ) Patient Instructions You came into the hospital with chest pain that started while you were walking up a small incline. At [facility], certain lab work showed that you may have been possibly having a heart attack, so you were sent to [facility]. Big Data Hadoop Developer, Dr. Croft did a cardiac catheterization which showed that one of your heart vessels was 98% occluded. As a result, she treated this with a stent, with great results. We monitored you overnight and all of your labs and vital signs remained stable. In addition, you deny chest pain and shortness of breath. We have explained to you the importance of taking both Plavix and aspirin every day without fail. You will be taking Plavix for at least one year, perhaps longer. Also, you will continue with metoprolol and Lisinopril. Because your cholesterol was high, you have also been started on a cholesterol medication, Crestor. You will need to follow-up closely with a aircraft engine dismantler once you arrive in [place]. Lastly, we found that your Hemoglobin A1c (which is the 3 month average of your blood sugar) was high at 11.4. This gives you a diagnosis of diabetes. We will start you on metformin 500 mg twice daily. This is a medication that will help better control your blood sugars. You will need to follow-up with your primary care doctor who will help manage your diabetes. You have been given a glucometer so that you can measure your blood sugars at least twice a day. Keep a record of your blood glucose levels and show this to your doctor. In addition , you received diabetic education while in the hospital and we talked about the importance of diet, which includes limited carbohydrates and sugars as well as exercise. Common side effects of metformin include : heartburn , stomach pain, nausea or vomiting, bloating, gas, diarrhea, constipation, weight loss, headache and unpleasant metallic taste in mouth. More concerning side effects include extreme tiredness , weakness, trouble breathing, dizziness, lightheadedness, a fast or slow heart rate, muscle pain, and abdominal pain. Please stop taking the medication if you experience any of these side effects. Time spent Greater than 35 minutes Attending Statement The patient was seen and examined together with Dr. Harvey on 11/28/16 and I have added additional information to the note above. Chiquis Harvey DO Nov 28, 2016 14:21 Blanca Castillo DO Nov 28, 2016 15:37 Chiquis Harvey DO Nov 28, 2016 14:21
== END 2016-11-28 14:10 | disposition home or self-care (01) | DRG 247 ==
LOC: PCC 22:02
PROVIDERS: ADMIT Hospitalist; ATTEND Hospitalist
PROC: 027034Z Dilation of Coronary Artery, One Artery with Drug-eluting Intraluminal Device, Percutaneous Approach (ICD-10-PCS; principal; 2016-11-27)
PROC: B2111ZZ Fluoroscopy of Multiple Coronary Arteries using Low Osmolar Contrast (ICD-10-PCS; 2016-11-27)
PROC: B240ZZ3 Ultrasonography of Single Coronary Artery, Intravascular (ICD-10-PCS; 2016-11-27)
DX: I21.4 Non-ST elevation (NSTEMI) myocardial infarction (principal); I25.10 Atherosclerotic heart disease of native coronary artery without angina pectoris; E78.5 Hyperlipidemia, unspecified; R12 Heartburn; Z79.02 Long term (current) use of antithrombotics/antiplatelets; E11.65 Type 2 diabetes mellitus with hyperglycemia